=== PATIENT | male | born 1940 | race Caucasian/White ===

== ENCOUNTER 2018-09-07 00:06 | Emergency (ER) | payer OTHER ==
[2018-09-07] MEDS ORDERED: OXYMETAZOLINE 30 ML NASAL SPRAY ONE (00:07)
[2018-09-07] MEDS ORDERED: SILVER NITRATE APPLICATOR 1 APPL TP ONE ×2 (00:07→00:47)
--- NOTE | 2018-09-07 00:18 | EDPHY ---
H & P Stated Complaint: Nose bleed for 2 hours Time Seen by Provider: 09/07/18 00:13 HPI/ROS: Chief Complaint: Nosebleed HPI: 78-year-old male presenting with nosebleed for the last 2 hr. Patient states that he had some intermittent bleeding yesterday was stopped on its own. Is has been bleeding profusely from both nostrils the last 2 hr. He does take Xarelto for atrial fibrillation. No lightheadedness or fainting. No chest pain or shortness of breath. No nasal trauma. ROS: 10 systems were reviewed and were negative except those elements noted in the HPI. PMH: Atrial fibrillation Social History: No smoking Family History: non-contributory Physical Exam: Gen: Awake, Alert, No Distress HEENT: Nose: Brisk oozing from bilateral nares anteriorly Eyes: PERRLA, EOMI Mouth: Moist mucosa Neck: Supple, no JVD Chest: nontender, lungs clear to auscultation Heart: S1, S2 normal, no murmur Abd: Soft, non-tender, no guarding Back: no CVA tenderness, no midline tenderness Ext: no edema, non-tender Skin: no rash Neuro: CN II-XII intact, Sensation grossly intact, Strength 5/5 in bilateral upper and lower extremities - Personal History Current Tetanus/Diphtheria Vaccine: Yes Current Tetanus Diphtheria and Acellular Pertussis (TDAP): Yes - Medical/Surgical History Hx Asthma: No Hx Chronic Respiratory Disease: No Hx Diabetes: No Hx Cardiac Disease: No Hx Renal Disease: No Hx Cirrhosis: No Hx Alcoholism: No Hx HIV/AIDS: No Hx Splenectomy or Spleen Trauma: No Other PMH: HTN Constitutional: Initial Vital Signs Temperature (C) 36.6 C 09/07/18 00:15 Heart Rate 72 09/07/18 00:15 Respiratory Rate 16 09/07/18 00:15 Blood Pressure 182/99 H 09/07/18 00:15 O2 Sat (%) 98 09/07/18 00:15 O2 Delivery Mode Room Air Allergies/Adverse Reactions: No Known Allergies Allergy (Unverified 09/07/18 00:16) Home Medications: Medication Instructions Recorded Bp Medication 09/07/18 Xarelto 09/07/18 Medical Decision Making Procedures: Procedure: Epistaxis control. After verbal consent was obtained, the patient was anesthetized with 4% lidocaine atomized and Quincy-Synephrine. The anterior epistaxis was identified. The patient was treated with silver nitrate cautery. Following the procedure the patient was re-examined and the bleeding was well controlled. The patient tolerated the procedure well. The procedure was performed by myself. ED Course/Re-evaluation: Patient was observed for 2 hr post procedure in emergency department. He had no further bleeding. He had no complaints. He is asking to go home as he is the only care provider for his invalid . I have cautioned him to return if his bleeding should resume. Patient is otherwise comfortable and happy with this plan. He will follow up with his Ear Nose and Throat doctor later today. Departure - Departure Disposition: Home, Routine, Self-Care Clinical Impression: Acute anterior epistaxis Condition: Good Instructions: Nosebleed (ED) Additional Instructions: Follow up with your ear nose and throat doctor later today. Return emergency department if you're nose begins to bleed once again.
[2018-09-07] MEDS ORDERED: LIDOCAINE HCL 4% TOPICAL SOLN 50ML ONE (00:36)
[2018-09-07 01:55] VITALS: BP 150/93
[2018-09-07] MEDS ORDERED: ONDANSETRON 4 MG/2 ML VIAL ONE (02:26)
== END 2018-09-07 02:44 | disposition home or self-care (01) ==
PROC: 095 Ear, Nose, Sinus, Destruction (ICD-10-PCS; principal; 2018-09-07)
DX: R04.0 Epistaxis (principal); I10 Essential (primary) hypertension
CPT/HCPCS: J2405

== ENCOUNTER → 2018-12-18 | Outpatient (CLI) | payer OTHER | LOC: BHFA 08:30 | PROVIDERS: ATTEND Internal Medicine Cardiovascular Disease | DX: I48.91 Unspecified atrial fibrillation (principal) ==

== ENCOUNTER 2019-03-31 21:47 | Observation (INO) | payer OTHER | END 2019-04-01 17:45 | disposition home or self-care (01) | LOC: F2W 21:47 ==